=== PATIENT | female | born 1975 | race Caucasian/White ===

== ENCOUNTER 2016-10-08 16:48 | Emergency (ER) | payer MEDICAID, OTHER | END 2016-10-08 23:04 | disposition home or self-care (01) | LOC: ER 16:48 | DX: L08.9 Local infection of the skin and subcutaneous tissue, unspecified (principal); R79.89 Other specified abnormal findings of blood chemistry; F12.10 Cannabis abuse, uncomplicated; F15.20 Other stimulant dependence, uncomplicated; B19.20 Unspecified viral hepatitis C without hepatic coma; F17.210 Nicotine dependence, cigarettes, uncomplicated | CPT/HCPCS: 36415; 80053; 80307; 80320; 80329; 81001; 83605; 84439; 84443; 85025; 85610 ==